=== PATIENT | male | born 1955 | race Two or more races ===

== ENCOUNTER 2019-11-25 17:47 | Emergency (ER) | payer OTHER ==
[~2019-11-25] VITALS: Ht 167.6 cm; Wt 50.3 kg
[2019-11-25 18:05] VITALS: BP 167/115
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
== END 2019-11-25 18:57 | disposition home or self-care (01) ==
LOC: ER 17:51
DX: S16.1XXA Strain of muscle, fascia and tendon at neck level, initial encounter (principal); M25.511 Pain in right shoulder; V49.59XA Passenger injured in collision with other motor vehicles in traffic accident, initial encounter; Y93.89 Activity, other specified; Y92.413 State road as the place of occurrence of the external cause; Y99.8 Other external cause status